=== PATIENT | female | born 1980 | race Caucasian/White ===

== ENCOUNTER → 2016-11-27 | Outpatient (CLI) | payer BC ==
[~2016-11-27] MED LIST: PHEN177S43 MT; [UNRECOGNIZED DRUG - REMARK]
== END | disposition home or self-care (01) ==
LOC: LAB 16:35
PROVIDERS: ATTEND Obstetrics & Gynecology
DX: Z32.00 Encounter for pregnancy test, result unknown (principal)

== ENCOUNTER → 2017-02-05 | Outpatient (CLI) | payer BC | END | disposition home or self-care (01) | LOC: LAB 08:31 | PROVIDERS: ATTEND Obstetrics & Gynecology | DX: O24.410 Gestational diabetes mellitus in pregnancy, diet controlled (principal) | CPT/HCPCS: 82950 ==

== ENCOUNTER 2017-02-19 15:55 | Outpatient (CLI) | payer BC ==
[~2017-02-19] VITALS: Ht 162.6 cm; Wt 81.0 kg
[2017-02-19] MEDS ORDERED: PRENAT PO (16:11)
[2017-02-19 16:12] VITALS: BP 107/63; PULSE 84; RESP 20; Ht 162.6 cm; Wt 81.0 kg
[2017-02-19] MEDS ORDERED: ALBUTEROL/IPRATROPIUM (NEB) 3 ML AMP HHN STA (16:26)
[2017-02-19] MEDS ORDERED: ALBUTEROL 0.083% (NEB) 2.5 MG/3 ML AMP ONE (16:27)
--- NOTE | 2017-02-19 18:01 | TRIAGE ---
OB Triage Datetime Report Generated by CPN: 02/19/2017 18:00 Datetime: 02/19/2017 17:00 Stage of : OB Triage Maternal Assessment Level of Consciousness: Fully Conscious Labor Evaluation Frequency: NONE Monitor Mode: External Resting Tone [place]: Relaxed Heart Rate FHR Baseline Rate: 135 Monitor Mode: External US Variability: Moderate 6-25 bpm Accelerations: 15X15 Decelerations: None Category: Category I Pain Assessment Pain Scale: 0 Pain Goal: 3 Vaginal Exam Membrane Status: Intact Vaginal Bleeding: None Datetime: 02/19/2017 16:59 Stage of : OB Triage Pool: Negative Nitrazine: Negative Datetime: 02/19/2017 16:09 Assessment Type: Triage Maternal Assessment Level of Consciousness: Fully Conscious DTR's/Clonus: DTRs 2+; No Clonus Headache: Denies Blurred Vision: No Respiratory Effort: Unlabored; Regular Rhythm; Equal Expansion Breath Sounds, Left: Clear and Equal Breath Sounds, Right: Clear and Equal Nausea/Vomiting: Denies RUQ Epigastric Pain: Denies Lower Extremities Edema: None Degree: None Upper Extremities Edema: None Degree: None Facial Edema: None Fall Risk Assessment History of Falling: (0) No Secondary Diagnosis: (0) No Ambulatory Aid: (0) Bedrest/Nurse Assist IV Therapy: (0) No Gait: (0) Normal/Bedrest/Immobile Mental Status: (0) Oriented to Own Ability Fall Score: 0 Fall Risk Score Definition: No Risk: No action required Comments: PT COUGHING Datetime: 02/19/2017 16:05 Monitor Mode: External Monitor Mode: External US Datetime: 02/19/2017 15:59 Time of Arrival: 02/19/2017 15:52 EGA: 31.6 Arrived By: Wheelchair Arrived From: Home Chief Complaint: C/O SOB AND COUGH Movement: Present Contractions: Denies/Absent Rupture of Membranes: Denies Vaginal Bleeding: None Vaginal Discharge: Denies Recent Sexual Intercouse: Yes Abdominal Trauma: Not Applicable Patient Complaints: Cough; Shortness of Breath Time Provider Notified: 02/19/2017 16:00 Provider Notified: MAYCO Initial Plan: EFM, RESP TX
[2017-02-19] MEDS ORDERED: ALBU8.5H3 INH (19:48)
[2017-02-19] MEDS ORDERED: LORA10CA PO (19:48)
--- NOTE | 2017-02-20 00:09 | QN ---
Documentation Comment 36-year-old with IUP at 31 weeks and 6 days presented with complaint of shortness of breath and cough for the last 2 days. She reports had chest pressure feeling today also complains of dry cough. Patient reports having sick contact. Family in-house have all of the same symptoms as well as cough. She denies any vaginal bleeding, leaking of fluid or uterine contractions or decreased movement. Physical exam: General appearance: Alert and oriented 4 does not appear to be in any acute distress. Lungs: Rhonchi audible. No rales no wheezing CV: RRR Abdomen: Soft, gravid, no tenderness, no rebound tenderness, no guarding no rigidity. Fundal height consistent with gestational age NST: Category 1. heart rate appropriate for gestational age. No contractions on the monitor seen Extremities: No calf tenderness, no click, 1+ bilateral symmetric edema. No cords palpable Assessment: IUP at 31 weeks and 6 days Cough with and shortness of breath, likely URI symptoms Chest pain, patient will be sent to emergency room for cardiac evaluation Currently no evidence of labor or OB complication at this time Patient advised to use Robitussin 3 times daily as needed cough as well as Tylenol Strict labor precaution and kick count discussed If discharge from the hospital recommended to have a follow-up with her primary OB in a couple of days after discharge Patient verbalized understanding. All questions were answered to the patient's best satisfaction TIO CHAN MD February 20, 2017 00:08 MARISOL = 11.3 cm Single live intrauterine with cardiac activity(FHR = 138 bpm). The placenta is anterior. The presentation is cephalic. The transvaginal cervical length is 3.8 cm. IMPRESSION: 1. Single viable intrauterine gestation. 2. Biophysical profile = 8/8. 3. MARISOL = 11.3 cm. RPTAT: [facility] TIO CHAN MD February 20, 2017 00:08
== END 2017-02-19 18:10 | disposition home or self-care (01) ==
LOC: OBT 15:55 → L-D 15:56 → OBT 18:10
PROVIDERS: ATTEND Obstetrics & Gynecology
DX: O26.893 Other specified pregnancy related conditions, third trimester (principal); R05 Cough; R06.02 Shortness of breath; R07.9 Chest pain, unspecified; O09.523 Supervision of elderly multigravida, third trimester; Z3A.31 31 weeks gestation of pregnancy
CPT/HCPCS: 94664; G0463

== ENCOUNTER 2017-02-19 18:14 | Emergency (ER) | payer BC ==
[~2017-02-19] VITALS: Ht 162.6 cm; Wt 80.5 kg
[~2017-02-19 18:14] MED LIST changes: +PRENAT PO
[2017-02-19 18:19] VITALS: Ht 162.6 cm; Wt 80.5 kg
[2017-02-19] MEDS ORDERED: ALBU8.5H3 INH (19:48)
[2017-02-19] MEDS ORDERED: LORA10CA PO (19:48)
--- NOTE | 2017-02-19 19:53 | ERD ---
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 She says that her entire family has had a viral upper respiratory illness she is the last 1 to get it. She says she has had a cough has been dry with nasal congestion but denies any fevers. She says today she was sitting at the desk and she started wheezing and became a little difficult to breathe. She never had any palpitations or dizziness or syncope. No abdominal pain pelvic pain or contractions. The patient has been seen by OB and clinically cleared from that standpoint. The patient says while she was on the floor she was given 1 breathing treatment she said that completely resolved her respiratory symptoms. She says currently she is only complaining of being congested nasally. ROS All systems reviewed and are negative except as per history of present illness. Medications Home Meds Active Scripts Albuterol Sulfate* (Proair HFA*) 8.5 Gm Hfa.aer.ad, 2 PUFF INH Q4, #1 INHALER Prov:JODY BRAR DO 02/19/17 Loratadine* (Claritin*) 10 Mg Capsule, 10 MG PO DAILY, #10 CAP Prov:JODY BRAR DO 02/19/17 Reported Medications Multivit/Min/Fol Ac/Iron/Pren* ( S*) 1 Tab Tab, 1 TAB PO DAILY, TAB 02/19/17 Discontinued Reported Medications [ Pills] No Conflict Check 08/26/13 Discontinued Scripts Phenol* (Chloraseptic* Spelter) 177 Ml Spelter.pump, 2 SPRAY MT Q2H Y for SORE THROAT, #1 BOTTLE Prov:CHRISTIANOED KELLY DO 06/28/16 Allergies Allergies: Coded Allergies: No Known Drug Allergies (Verified Allergy, Unknown, 06/28/16) PMhx/Soc History of Surgery: Yes (RIGHT BREAST MASS REMOVAL) Anesthesia Reaction: No Hx Neurological Disorder: No Hx Respiratory Disorders: No Hx Cardiac Disorders: No Hx Psychiatric Problems: No Hx Miscellaneous Medical Probl: No Hx Alcohol Use: No Hx Substance Use: No Hx Tobacco Use: No Smoking Status: Never smoker FmHx Family History: No coronary disease Physical Exam Vitals Vital Signs Date Time Temp Pulse Resp B/P Pulse Ox O2 Delivery O2 Flow Rate FiO2 02/19/17 18:19 98.1 96 18 111/61 98 Physical Exam Const: Well-developed, well-nourished Head: Atraumatic, normocephalic Eyes: Normal Conjunctiva, PERRLA, EOMI, normal sclera, no nystagmus ENT: Normal External Ears, Nose and Mouth, moist mucus membranes. Neck: Full range of motion. No meningismus, no lymphadenopathy. Resp: Clear to auscultation bilaterally, no wheezing, rhonchi, rales Cardio: Regular rate and rhythm, no murmurs, S1 S2 present Abd: Soft, non tender x 4, gravid. Normal bowel sounds, no guarding or rebound, no pulsitile abdominal masses or bruits Skin: No petechiae or rashes, no ecchymosis , no maculopapular rash Back: No midline or flank tenderness Ext: No cyanosis, or edema, FROM x 4, normal inspection, neurovascularly intact x 4 Neur: Awake and alert, STR 5/5 x 4, sensation intact x 4, no focal findings, cerebellum intact Psych: Normal Mood and Affect Procedures/MDM EKG: Rate/Rhythm: Normal Sinus Rhythm,NL intervals QRS, ST, QT: NORMAL ME, QRS, QT] Impression: NORMAL EKG Patient sounds like she has viral URI symptoms with wheezing. Wheezing is now resolved. She does not clinically sound like a cardiac or pulmonary embolism. Nebulizer treatment resolved her wheezing and breathing difficulties. She sounds clear now. She feels much better. Will discharge home with albuterol and Claritin. Do not feel she needs antibiotic therapy because she is last seen her family to get this cold-like symptoms. She wants to hold prednisone Departure Diagnosis: Primary Impression: URI (upper respiratory infection) URI type: unspecified viral URI Qualified Code: J06.9 - Viral upper respiratory tract infection Condition: Stable Patient Instructions: Uri, Viral W/ Wheezing (Adult) JODY BRAR DO February 19, 2017 19:53
[2017-02-19 20:55] VITALS: BP 128/66; PULSE 100; RESP 18; TEMP 98.1
== END 2017-02-19 20:55 | disposition home or self-care (01) ==
LOC: FTE 18:14
DX: O99.513 Diseases of the respiratory system complicating pregnancy, third trimester (principal); J06.9 Acute upper respiratory infection, unspecified; R05 Cough; R07.9 Chest pain, unspecified; Z3A.32 32 weeks gestation of pregnancy
CPT/HCPCS: 99283

== ENCOUNTER 2017-04-04 01:15 | Inpatient (IN) | payer BC ==
[~2017-04-04] VITALS: Ht 160 cm; Wt 82.0 kg
[~2017-04-04 01:15] MED LIST changes: +ALBU8.5H3 INH; +LORA10CA PO; -PHEN177S43 MT; -[UNRECOGNIZED DRUG - REMARK]
[2017-04-04 01:28] VITALS: BP 120/69; PULSE 85; RESP 18; Ht 160 cm; Wt 82.0 kg
[2017-04-04] MEDS ORDERED: LACTATED RINGER'S 1,000 ML IV SCH (01:50)
[2017-04-04] MEDS ORDERED: LIDOCAINE 1% (MPF) 30 ML INJ INJ PRN (02:00)
[2017-04-04] MEDS ORDERED: AMPICILLIN 2 GM/NS (PMX) 100 ML IV ONE (02:00)
[2017-04-04] MEDS ORDERED: OXYTOCIN 30 UNITS/LR 500 ML IV SCH ×2 (02:00)
[2017-04-04] MEDS ORDERED: CARBOPROST 250 MCG INJ IM PRN ×2 (02:00→09:00)
[2017-04-04] MEDS ORDERED: IBUPROFEN 600 MG TAB PO PRN (02:00)
[2017-04-04] MEDS ORDERED: BUTORPHANOL 2 MG INJ IV PRN (02:00)
[2017-04-04] MEDS ORDERED: ACETAMINOPHEN/CODEINE #3 TAB PO PRN (02:00)
[2017-04-04] MEDS ORDERED: METHYLERGONOVINE 0.2 MG INJ IM PRN ×2 (02:00→09:00)
[2017-04-04] MEDS ORDERED: OXYTOCIN 30 UNITS/LR 500 ML IV PRN ×2 (02:00→09:00)
[2017-04-04] MEDS ORDERED: MISOPROSTOL 200 MCG TAB PR PRN ×2 (02:00→09:00)
--- NOTE | 2017-04-04 02:26 | TRIAGE ---
OB Triage Datetime Report Generated by CPN: 04/04/2017 02:26 Datetime: 04/04/2017 01:15 Time of Arrival: 04/04/2017 01:11 EGA: 38.1 Arrived By: Wheelchair Arrived From: Home Chief Complaint: PT C/O ABDOMEN PAIN Movement: Present Contractions: Regular Time Contractions Began: 04/03/2017 09:00 Rupture of Membranes: Denies Vaginal Discharge: Denies Recent Sexual Intercouse: Denies Abdominal Trauma: Not Applicable Patient Complaints: Contractions Additional Patient Complaints: TOCO AND EFM APPLIED AND SVE Provider Notified: DR MAO Datetime: 02/19/2017 16:09 Fall Risk Assessment Fall Score: 0 Fall Risk Score Definition: No Risk: No action required Datetime: 02/19/2017 15:59 EGA: 31.6
[2017-04-04 02:51] LABS: ADD SCAN DIFF NO
[2017-04-04 02:58] LABS: BASOPHIL # 0.1 10^3/ul (0.0-0.1); BASOPHILS % 0.4 % (0.0-2.0); EOSINOPHILS % 0.3 % (0.0-7.0); HEMATOCRIT 31.6 % (37.0-47.0); HEMOGLOBIN 10.7 g/dl (12.0-16.0); LYMPHOCYTES # 1.9 10^3/ul (0.8-2.9); LYMPHOCYTES % 15.4 % (15.0-51.0); MEAN CORPUSCULAR HEMOGLOBIN 30.1 pg (29.0-33.0); MEAN CORPUSCULAR HGB CONC 33.9 g/dl (32.0-37.0); MEAN CORPUSCULAR VOLUME 88.8 fl (82.0-101.0); MEAN PLATELET VOLUME 10.9 fl (7.4-10.4); MONOCYTE # 0.7 10^3/ul (0.3-0.9); MONOCYTES % 5.2 % (0.0-11.0); NEUTROPHIL # 9.8 10^3/ul (1.6-7.5); NEUTROPHILS % 78.1 % (39.0-77.0); PLATELET COUNT 222 10^3/UL (140-415); RED BLOOD COUNT 3.56 10^6/ul (4.20-5.40); RED CELL DISTRIBUTION WIDTH 14.1 % (11.5-14.5); WHITE BLOOD COUNT 12.6 10^3/ul (4.8-10.8)
[2017-04-04] MEDS ORDERED: FENTAnyl 2MCG/ML-ROPIV 0.2% 100 ML ONE (03:14)
[2017-04-04 03:15] LABS: INR 0.91; PARTIAL THROMBOPLASTIN TIME 27.5 Sec (25.0-35.0); PROTIME 12.3 Sec (12.2-14.2)
[2017-04-04] MEDS ORDERED: EPHEDrine SULFATE 50 MG/5 ML SYG IV PRN (03:30)
[2017-04-04] MEDS ORDERED: ONDANSETRON 4 MG INJ IV PRN (03:30)
[2017-04-04] MEDS ORDERED: FENTAnyl 2MCG/ML-ROPIV 0.2% 100 ML BAG EPI SCH (03:30)
[2017-04-04] MEDS ORDERED: NALOXONE (0.4 MG/ML) INJ IV PRN (03:30)
[2017-04-04] MEDS ORDERED: LACTATED RINGER'S 1,000 ML IV PRN (04:00)
[2017-04-04] MEDS ORDERED: AMPICILLIN 1 GM/NS (PMX) 50 ML IV SCH (06:00)
[2017-04-04] MEDS: LACTATED RINGER'S 1,000 ML IV* SCH ×2 (08:43→16:43)
--- NOTE | 2017-04-04 08:52 | LDN ---
Date/Time of Note Date/Time of Note DATE: 04/04/17 TIME: 08:49 Delivery Summary of a viable baby girl weighing 2835 grams, or 6# 4oz, 19" long and with Apgars of 9/9. Weeks of Gestation 38w Placenta Delivered: Spontaneously Meconium: none Episiotomy: No Perineal laceration: 1 Laceration repair: 1st degree vaginal laceration repaired with 2-0 chromic for hemostasis. Anesthesia type: Epidural Estimated blood loss: 150 Sponge & Needle done & correct: Yes All needle counts correct: Yes Any foreign bodies felt in the: No (vagina) Problems: Delivery Information Sex Infant Sex: female Apgars 1 Minute: 9 5 Minute: 9 Suctioning Nose & mouth suctioned at mikey: Yes Delee suction performed: No Umbilical Cord Umbilical cord with: 3 Vessels Cord presentations: nuchal cord Nuchal cord present X: 1 Cord Blood was obtained: Yes Mother & Baby Disposition Disposition Mom & Baby to Maternity; Good: Yes Baby to NICU: No ENDY MAO MD Apr 04, 2017 08:52
[2017-04-04] MEDS: OXYTOCIN 30 UNITS/LR 500 ML IV SCH ×2 (08:55→09:00)
--- NOTE | 2017-04-04 08:57 | HP ---
Date/Time of Note Date/Time of Note DATE: 04/04/17 TIME: 08:52 OB - History Hx of Present Free Text/Dictation 36 y.o. A1 with an IUP at 38 weeks came in this am at 0100 in labor and cervical exam was 90%/5cm on admit. Chief Complaint: Labor Estimated Due Date: Apr 18, 2017 : 3 Para: 1 Spontaneous : 1 Care: Good Care Ultrasounds: Normal mid trimester US Obstetrical Complications: None Medical Complications: Respiratory (asthma) Past Family/Social History * Past Medical, Surgical, Family and Obstetric Histories reviewed from chart. Blood Type: A+ Rubella: immune RPR/VDRL: Negative GBS Status: Positive HBsAG: Negative OB Admission Exam Vital Signs Vital Signs Vital Signs Date Time Temp Pulse Resp B/P Pulse Ox O2 Delivery O2 Flow Rate FiO2 04/04/17 01:28 97.8 85 18 120/69 Room Air Physical Exam HEENT: WNL Heart: Rhythm Normal Lungs: Clear Abdomen: WNL Extremities: Normal Reflexes: Normal Cervical Dilatation: 5cm Effacement: Other (90%) Station: -2 Membranes: Ruptured Amniotic Fluid: Clear Heart Rate: 140's Accelerations: Accelerations Present Decelerations: Variable Decelerations Varibility: Moderate Contractions on Admission: < 5 Minutes Apart Intensity: Moderate Last 72 hours Lab Results CBC & BMP 04/04/17 02:05 OB Assessment/Plan Reason for admission: active labor, group B positive strep Plan: Expectant Management Other plan: Antibiotic prophylaxis ENDY MAO MD Apr 04, 2017 08:57
[2017-04-04] MEDS ORDERED: OXYCODONE/ASPIRIN (4.88/325) TAB PO PRN (09:00)
[2017-04-04] MEDS ORDERED: LANOLIN 7 GM TUBE TOP PRN (09:00)
[2017-04-04 10:10] VITALS: BP 131/63; PULSE 80; RESP 18
[2017-04-04] MEDS: LORATADINE 10 MG TAB PO SCH (11:49)
[2017-04-04] MEDS: IBUPROFEN 600 MG TAB PO SCH ×2 (11:49→18:03)
[2017-04-04 12:30] VITALS: BP 130/60; PULSE 84; RESP 16
[2017-04-04] MEDS: ALBUTEROL HFA 8 GM INHALER INH SCH ×3 (13:00→21:00)
[2017-04-04 16:00] VITALS: BP 110/53; PULSE 81; RESP 18
[2017-04-04 20:20] VITALS: BP 103/60; PULSE 65; RESP 18
[2017-04-05] MEDS: IBUPROFEN 600 MG TAB PO SCH ×4 (00:27→18:01)
[2017-04-05] MEDS: LACTATED RINGER'S 1,000 ML IV* SCH ×3 (00:43→16:19)
[2017-04-05] MEDS: ALBUTEROL HFA 8 GM INHALER INH SCH ×6 (01:00→21:00)
[2017-04-05 04:05] VITALS: BP 99/56; PULSE 76; RESP 18
[2017-04-05 07:09] LABS: ADD SCAN DIFF NO
[2017-04-05 07:14] LABS: BASOPHILS % 0.2 % (0.0-2.0); EOSINOPHILS # 0.1 10^3/ul (0.0-0.5); EOSINOPHILS % 0.6 % (0.0-7.0); HEMATOCRIT 28.5 % (37.0-47.0); HEMOGLOBIN 9.4 g/dl (12.0-16.0); LYMPHOCYTES # 2.2 10^3/ul (0.8-2.9); LYMPHOCYTES % 20.3 % (15.0-51.0); MEAN CORPUSCULAR HEMOGLOBIN 29.4 pg (29.0-33.0); MEAN CORPUSCULAR VOLUME 89.1 fl (82.0-101.0); MEAN PLATELET VOLUME 10.4 fl (7.4-10.4); MONOCYTE # 0.6 10^3/ul (0.3-0.9); MONOCYTES % 5.8 % (0.0-11.0); NEUTROPHIL # 7.8 10^3/ul (1.6-7.5); NEUTROPHILS % 72.3 % (39.0-77.0); PLATELET COUNT 196 10^3/UL (140-415); RED CELL DISTRIBUTION WIDTH 14.4 % (11.5-14.5); WHITE BLOOD COUNT 10.8 10^3/ul (4.8-10.8)
[2017-04-05 07:45] VITALS: BP 106/58; PULSE 75; RESP 16
[2017-04-05] MEDS: LORATADINE 10 MG TAB PO SCH (09:00)
--- NOTE | 2017-04-05 11:37 | PD.PPDC ---
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
--- NOTE | 2017-04-05 11:40 | DS ---
Date/Time of Note Date/Time of Note DATE: 04/05/17 TIME: 11:39 Obstetrical Discharge Record Final Diagnosis Final Diagnosis: Term delivered Vaginal Delivery Obstetrical Delivery: Spontaneous Complications Augmentation: No Induction: No Condition on Discharge Physical Assessment Last Vitals: T=98.2 BP 106/55 Voiding: Yes Bowel Movement: Yes Breast: Soft, non-tender Fundus: Firm Calf Tenderness: No Patient Condition: Good ENDY MAO MD Apr 05, 2017 11:40
[2017-04-05 15:21] VITALS: BP 106/62; PULSE 86; RESP 18
[2017-04-05 19:45] VITALS: BP 108/68; PULSE 78; RESP 18
[2017-04-06] MEDS: IBUPROFEN 600 MG TAB PO SCH ×3 (00:33→12:24)
[2017-04-06] MEDS: ALBUTEROL HFA 8 GM INHALER INH SCH ×4 (01:00→13:00)
[2017-04-06 04:30] VITALS: BP 106/55; PULSE 72
[2017-04-06 08:00] VITALS: BP 107/63; PULSE 67; RESP 18
[2017-04-06] MEDS: LORATADINE 10 MG TAB PO SCH (08:31)
[2017-04-06] MEDS ORDERED: DIPHTH/TET/ACEL PERTUSS (ADULT) 0.5 ML VIAL IM* ONE (09:00)
== END 2017-04-06 16:15 | disposition home or self-care (01) | DRG 775 ==
LOC: EEVIPCON → L-D 01:15 → OBT 01:15 → L-D 01:42 → PP1 10:07
PROVIDERS: ADMIT Obstetrics & Gynecology; ATTEND Obstetrics & Gynecology
PROC: 10E0XZZ Delivery of Products of Conception, External Approach (ICD-10-PCS; principal; 2017-04-04)
PROC: 0HQ9XZZ Repair Perineum Skin, External Approach (ICD-10-PCS; 2017-04-04)
PROC: 3E00X4Z Introduction of Serum, Toxoid and Vaccine into Skin and Mucous Membranes, External Approach (ICD-10-PCS; 2017-04-06)
DX: O71.4 Obstetric high vaginal laceration alone (principal); Z23 Encounter for immunization; Z3A.38 38 weeks gestation of pregnancy; Z37.0 Single live birth
CPT/HCPCS: 59025; 62319; 85025; 85610; 85730; 86592; 86900; 86901; 87340; 90715; 99464; G0463; J0290; J0595; J2590; J3010; J7120

== ENCOUNTER 2017-11-03 20:14 | Emergency (ER) | END 2017-11-03 23:06 | disposition home or self-care (01) ==

== ENCOUNTER 2018-07-10 15:26 | Emergency (ER) | END 2018-07-10 18:20 | disposition home or self-care (01) ==

== ENCOUNTER 2018-07-15 09:07 | Emergency (ER) | END 2018-07-15 12:22 | disposition home or self-care (01) ==

== ENCOUNTER 2019-02-15 06:16 | Emergency (ER) | payer BC ==
[~2019-02-15] VITALS: Ht 162.6 cm; Wt 82.5 kg
[~2019-02-15 06:16] MED LIST changes: +ACET500C5 PO; -ALBU8.5H3 INH; +ALBU8.5H8 INH; +CEPH-443 PO; +CYCL10TA7 PO; +DICY10CA40 PO; +HYDR-4011 PO; +MECL12.574 PO; +ONDA4TAB8 PO
[2019-02-15 06:21] VITALS: Ht 162.6 cm; Wt 82.5 kg
[2019-02-15] MEDS ORDERED: SOD CHLORIDE 0.9% 1,000 ML IV STA (06:36)
[2019-02-15] MEDS ORDERED: FAMOTIDINE 20 MG INJ IV STA (06:36)
[2019-02-15] MEDS ORDERED: ONDANSETRON 4 MG INJ IV STA (06:36)
[2019-02-15] MEDS ORDERED: KETOROLAC 30 MG INJ IV STA (06:37)
[2019-02-15] MEDS ORDERED: DICYCLOMINE 20 MG INJ IM ONE (08:30)
[2019-02-15] MEDS ORDERED: ONDA4TAB14 PO (08:37)
[2019-02-15] MEDS ORDERED: FAMO-96 PO (08:37)
[2019-02-15] MEDS ORDERED: ACET325T33 PO (08:41)
[2019-02-15] MEDS ORDERED: DICY10CA40 PO (08:43)
--- NOTE | 2019-02-15 08:49 | ERD ---
ER Documentation Chief Complaint Chief Complaint DIARRHEA WITH N/V X1DAY HPI History of Present Illness: 38-year-old female with no past medical history coming in today with complaint of diarrhea, nausea, vomiting that is been present since yesterday. Patient reports going to a alliance party 2 days ago in which she was possibly used to another patient that had diarrhea; her [id number]. Yesterday while driving home patient began feeling ill at approximately 4 PM in which she started experiencing body aches, fatigue, and had to tack puller machine to vomit. Since this episode of sickness began, patient has been having abdominal bloating, vomiting x6, diarrhea x5. Patient denies any other associated sympto ms. Patient denies fever at home. Patient does complains of feeling fatigued and with increased thirst but with no desire to drink. At home pharmacological/nonpharmacological treatment for symptoms: Denies Denies social concerns; Denies recent foreign travel ROS All systems reviewed and are negative except as per history of present illness. Medications Home Meds Active Scripts Dicyclomine HCl (Dicyclomine HCl) 10 Mg Capsule, 10 MG PO TID PRN for ABDOMINAL CRAMPING, #20 CAP Prov:COLIN TEJEDA NP 02/15/19 Acetaminophen* (Tylenol*) 325 Mg Tablet, 2 TAB PO Q6 PRN for PAIN AND OR ELEVATED TEMP, #20 TAB Prov:COLIN TEJEDA NP 02/15/19 Famotidine* (Pepcid*) 20 Mg Tablet, 40 MG PO BID for ABDOMINAL DISCOMFORT/ACID for 5 Days, TAB Prov:COLIN TEJEDA V REHABILITATION SPECIALIST 02/15/19 Ondansetron (Ondansetron Odt) 4 Mg Tab.rapdis, 4 MG PO Q6H PRN for NAUSEA AND/OR VOMITING, #10 TAB Prov:COLIN TEJEDA NP 02/15/19 Dicyclomine HCl (Dicyclomine HCl) 10 Mg Capsule, 10 MG PO TID PRN for ABDOMINAL CRAMPING, #20 CAP Prov:TISH PASCUAL PA-C 07/15/18 Meclizine Hcl* (Antivert*) 12.5 Mg Tab, 12.5 MG PO Q6H PRN for DIZZINESS, #20 TAB Prov:TISH PASCUAL PA-C 9/26/18 Ondansetron Hcl* (Zofran*) 4 Mg Tablet, 4 MG PO Q6H for NAUSEA AND/OR VOMITING, #30 TAB Prov:TISH PASCUAL PA-C 07/15/18 Cephalexin* (Keflex*) 500 Mg Capsule, 500 MG PO QID for 5 Days, CAP Prov:DEEPIKA BECKHAM PA-C 07/10/18 Cyclobenzaprine Hcl* (Cyclobenzaprine Hcl*) 10 Mg Tablet, 10 MG PO TID, #15 TAB Prov:DEYVI GONZALEZ REHABILITATION SPECIALIST 11/03/17 Hydrocodone/Acetaminophen ([place] 5-325 Tablet) 1 Each Tablet, 1 TAB PO Q6H PRN for SEVERE PAIN LEVEL 7-10, #20 TAB Prov:DEYVI GONZALEZ REHABILITATION SPECIALIST 11/03/17 Acetaminophen* (Tylophen*) 500 Mg Capsule, 1 CAP PO Q6H PRN for PAIN AND OR ELEVATED TEMP, #20 CAP Prov:DEYVI GONZALEZ REHABILITATION SPECIALIST 11/03/17 Albuterol Sulfate* (Proair HFA*) 8.5 Gm Hfa.aer.ad, 2 PUFF INH Q4, #1 INHALER Prov:NINI BRARSTRAYOS Briana DO 02/19/17 Loratadine* (Claritin*) 10 Mg Capsule, 10 MG PO DAILY, #10 CAP Prov:LEKKOS,APOSTOLOS A. DO 02/19/17 Reported Medications Multivit/Min/Fol Ac/Iron/Pren* ( S*) 1 Tab Tab, 1 TAB PO DAILY, TAB 02/19/17 Allergies Allergies: Coded Allergies: No Known Drug Allergies (Verified Allergy, Unknown, 11/03/17) PMhx/Soc History of Surgery: No Anesthesia Reaction: No Hx Neurological Disorder: No Hx Respiratory Disorders: No Hx Cardiac Disorders: No Hx Psychiatric Problems: No Hx Miscellaneous Medical Probl: Yes (right breast cyst biopsy) Hx Alcohol Use: No Hx Substance Use: No Hx Tobacco Use: No Smoking Status: Never smoker FmHx Family History: coronary disease; No diabetes Physical Exam Vitals Vital Signs Date Temp Pulse Resp B/P (MAP) Pulse Ox O2 O2 Flow FiO2 Time Delivery Rate 02/15/19 97.8 103 19 120/69 97 06:21 (86) Physical Exam Const: No acute distress Head: Atraumatic Eyes: Normal Conjunctiva ENT: Normal External Ears, Nose and Mouth. Neck: Full range of motion. No meningismus. Resp: Clear to auscultation bilaterally Cardio: Regular rate and rhythm, no murmurs Abd: Soft, generalized tender all quadrants more particularly epigastric, non distended. Hyperactive bowel sounds Skin: No petechiae or rashes Back: No midline or flank tenderness Ext: No cyanosis, or edema Neur: Awake and alert Psych: Normal Mood and Affect Results 24 hrs Laboratory Tests Test 02/15/19 07:00 02/15/19 07:05 Urine Color YELLOW Urine Clarity SLIGHTLY CLOUDY Urine pH 5.0 Urine Specific [place] 1.024 Urine Ketones TRACE mg/dL Urine Nitrite NEGATIVE mg/dL Urine Bilirubin NEGATIVE mg/dL Urine Urobilinogen NEGATIVE mg/dL Urine Leukocyte Esterase NEGATIVE Lindsay/ul Urine Microscopic RBC 1 /HPF Urine Microscopic WBC 4 /HPF Urine Squamous Epithelial Cells MODERATE /HPF Urine Bacteria FEW /HPF Urine Mucus FEW /HPF Urine Hemoglobin NEGATIVE mg/dL Urine Glucose NEGATIVE mg/dL Urine Total Protein NEGATIVE mg/dl POC Beta HCG, Qualitative NEGATIVE Current Medications Medications Dose Sig/Filemon Start Time Status Last (Trade) Ordered Route PRN Stop Time Admin Dose Reason Admin Sodium 1,000 ml @ Q1H STAT 02/15/19 DC 02/15/19 Chloride 1,000 mls/hr IV 06:36 07:01 02/15/19 07:35 Ondansetron 4 mg ONCE STAT 02/15/19 DC 02/15/19 HCl (Zofran IV 06:36 07:07 Inj) 02/15/19 06:37 Famotidine 20 mg ONCE STAT 02/15/19 DC 02/15/19 (Pepcid Iv) IV 06:36 07:07 02/15/19 06:37 Ketorolac 30 mg ONCE STAT 02/15/19 DC 02/15/19 Tromethamine IV 06:37 07:09 (Toradol) 02/15/19 06:39 Dicyclomine 20 mg ONCE ONCE 02/15/19 DC 02/15/19 HCl IM 08:30 08:31 (Bentyl) 02/15/19 08:31 Procedures/MDM ED course includes a thorough examination and history. Medications: IV NS, ketorolac, Zofran, Pepcid Imaging: -- Labs: Urinalysis, urine Low suspicion for life-threatening medical emergency. Otherwise healthy patient presenting with constellation of symptoms likely representing vomiting diarrhea secondary to gastroenteritis as characterized by history, physical exam findings, lab findings. Urinalysis negative for infection. Urine negative. No respiratory distress, otherwise relatively well appearing and nontoxic. Patient reassessment indicates patient with decreased pain, patient only describing soreness to epigastric area. Patient denies nausea, no vomiting during ER. Patient with decrease in fatigue. Will p.o. challenge patient if no failed will discharge. Bentyl added for intermittent abdominal cramping. Patient educated on diagnoses, prescriptions, follow-up care, return preca utions. Strict return precautions given for worsening condition; questions answered discharge. Patient passed p.o. challenge. Disposition given. Disposition for discharge with followup in 2 days with PCP/clinic. Departure Diagnosis: Primary Impression: Gastroenteritis Additional Impression: Vomiting and diarrhea Condition: Stable Patient Instructions: Self-Care for Vomiting and Diarrhea, Gastroenteritis, Non-Infectious (Child) (Adult) Referrals: [facility] YOU HAVE RECEIVED A MEDICAL SCREENING EXAM AND THE RESULTS INDICATE THAT YOU DO NOT HAVE A CONDITION THAT REQUIRES URGENT TREATMENT IN THE EMERGENCY DEPARTMENT. FURTHER EVALUATION AND TREATMENT OF YOUR CONDITION CAN WAIT UNTIL YOU ARE SEEN IN YOUR DOCTORS OFFICE WITHIN THE NEXT 1-2 DAYS. IT IS YOUR RESPONSIBILITY TO MAKE AN APPOINTMENT FOR FOLOW-UP CARE. IF YOU HAVE A PRIMARY DOCTOR --you should call your primary doctor and schedule an appointment IF YOU DO NOT HAVE A PRIMARY DOCTOR YOU CAN CALL OUR PHYSICIAN REFERRAL HOTLINE AT IF YOU CAN NOT AFFORD TO SEE A PHYSICIAN YOU CAN CHOSE FROM THE FOLLOWING [facility] [address] [facility] [address] [facility] [facility] [address] [facility] [facility] [address] [facility] [address] [facility]. [facility]. [address] [facility]. [facility] YOU HAVE RECEIVED A MEDICAL SCREENING EXAM AND THE RESULTS INDICATE THAT YOU DO NOT HAVE A CONDITION THAT REQUIRES URGENT TREATMENT IN THE EMERGENCY DEPARTMENT. FURTHER EVALUATION AND TREATMENT OF YOUR CONDITION CAN WAIT UNTIL YOU ARE SEEN IN YOUR DOCTORS OFFICE WITHIN THE NEXT 1-2 DAYS. IT IS YOUR RESPONSIBILITY TO MAKE AN APPOINTMENT FOR FOLOW-UP CARE. IF YOU HAVE A PRIMARY DOCTOR --you should call your primary doctor and schedule and appointment IF YOU DO NOT HAVE A PRIMARY DOCTOR YOU CAN CALL OUR PHYSICIAN REFERRAL HOTLINE AT . IF YOU CAN NOT AFFORD TO SEE A PHYSICIAN YOU CAN CHOSE FROM THE FOLLOWING [facility] INSTITUTIONS: [facility] [address] [place] [address] [facility] [address] [place] [address] [facility] [address] [place] [address] Additional Instructions: Thank you very much for allowing us to participate in your care. Your health and safety is our top priority at [facility]. It is important to read all discharge instructions and education provided in your discharge packet. *Start a [id number] probiotic. A brand called Align is used frequently for patients who have DIARRHEA OR with GI symptom* Call your primary care doctor TOMORROW for an appointment during the next 2-4 days and bring all the information and medications prescribed. Have prescriptions filled and follow precisely the directions on the label. -Acetaminophen as a medication for pain and/or fever. Take this medication as needed for mild to moderate pain. This medication will not cause drowsiness. -Zofran is a medication for nausea/vomitting; take this medication as needed for nausea/vomiting/decreased appetite. -Famotidine is a medication that will help with acid reflux; take this medication as prescribed with lunch and dinner. This will hopefully help with unsettled/upper abdominal pain that you are experiencing after vomiting. If the symptoms get worse and your provider is unavailable, return to the Emergency Department immediately. COLIN TEJEDA NP Feb 15, 2019 08:49
[2019-02-15 09:20] VITALS: BP 102/66; PULSE 87; RESP 18
== END 2019-02-15 09:21 | disposition home or self-care (01) ==
LOC: FTE 06:16
DX: K52.9 Noninfective gastroenteritis and colitis, unspecified (principal)
CPT/HCPCS: 81001; 81025; J0500; J1885; J2405; J7030; 81003; 96372; 96374; 96375

== ENCOUNTER 2019-03-12 12:28 | Emergency (ER) | payer BC ==
[~2019-03-12] VITALS: Wt 83.9 kg
[~2019-03-12 12:28] MED LIST changes: +ACET325T33 PO; +FAMO-96 PO; +ONDA4TAB14 PO
[2019-03-12 12:43] VITALS: BP 132/82; PULSE 88; RESP 20
[2019-03-12] MEDS ORDERED: BENZ-6 PO (13:18)
[2019-03-12] MEDS ORDERED: IBUP-1542 PO (13:18)
[2019-03-12] MEDS ORDERED: D-ME473S2 PO (13:18)
--- NOTE | 2019-03-12 15:57 | ERD ---
ER Documentation Chief Complaint Chief Complaint THROAT PAIN X THIS MORNING HPI Patient is a 38-year-old female presents the ER for concerns of throat pain for 2 days. Patient reports tactile fevers and chills. Patient denies any drooling, trismus or hypertension of her neck. Patient states she has mild dry cough. Patient states she has lost her voice secondary to talking. 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 Patient's daughter is a sick contact. ROS All systems reviewed and are negative except as per history of present illness. Medications Home Meds Active Scripts Dextromethorphan Hb-Promethazine Hcl* (Promethazine DM* Syrup) 473 Ml Syrup, 5 ML PO Q6 PRN for COUGH, #4 OZ Prov:ANALILIA MENENDEZ-C 03/12/19 Benzonatate* (Tessalon Perle*) 100 Mg Capsule, 100 MG PO Q8H PRN for COUGH, #20 CAP Prov:ANALILIA MENENDEZ-C 03/12/19 Ibuprofen* (Motrin*) 600 Mg Tab, 600 MG PO Q6, #30 TAB Prov:ANALILIA MENENDEZ-C 03/12/19 Dicyclomine HCl (Dicyclomine HCl) 10 Mg Capsule, 10 MG PO TID PRN for ABDOMINAL CRAMPING, #20 CAP Prov:COLIN TEJEDA NP 02/15/19 Acetaminophen* (Tylenol*) 325 Mg Tablet, 2 TAB PO Q6 PRN for PAIN AND OR ELEVATED TEMP, #20 TAB Prov:COLIN TEJEDA NP 02/15/19 Famotidine* (Pepcid*) 20 Mg Tablet, 40 MG PO BID for ABDOMINAL DISCOMFORT/ACID for 5 Days, TAB Prov:COLIN TEJEDA NP 02/15/19 Ondansetron (Ondansetron Odt) 4 Mg Tab.rapdis, 4 MG PO Q6H PRN for NAUSEA AND/OR VOMITING, #10 TAB Prov:COLIN TEJEDA NP 02/15/19 Dicyclomine HCl (Dicyclomine HCl) 10 Mg Capsule, 10 MG PO TID PRN for ABDOMINAL CRAMPING, #20 CAP Prov:TISH PASCUAL-C 07/15/18 Meclizine Hcl* (Antivert*) 12.5 Mg Tab, 12.5 MG PO Q6H PRN for DIZZINESS, #20 TAB Prov:TISH PASCUAL PA-C 07/15/18 Ondansetron Hcl* (Zofran*) 4 Mg Tablet, 4 MG PO Q6H for NAUSEA AND/OR VOMITING, #30 TAB Prov:TISH PASCUAL PA-C 07/15/18 Cephalexin* (Keflex*) 500 Mg Capsule, 500 MG PO QID for 5 Days, CAP Prov:DEEPIKA BECKHAM PA-C 07/10/18 Cyclobenzaprine Hcl* (Cyclobenzaprine Hcl*) 10 Mg Tablet, 10 MG PO TID, #15 TAB Prov:DEYVI GONZALEZ DRUM MAKER 11/03/17 Hydrocodone/Acetaminophen ([place] 5-325 Tablet) 1 Each Tablet, 1 TAB PO Q6H PRN for SEVERE PAIN LEVEL 7-10, #20 TAB Prov:DEYVI GONZALEZ DRUM MAKER 11/03/17 Acetaminophen* (Tylophen*) 500 Mg Capsule, 1 CAP PO Q6H PRN for PAIN AND OR ELEVATED TEMP, #20 CAP Prov:DEYVI GONZALEZ DRUM MAKER 11/03/17 Albuterol Sulfate* (Proair HFA*) 8.5 Gm Hfa.aer.ad, 2 PUFF INH Q4, #1 INHALER Prov:JODY BRAR DO 02/19/17 Loratadine* (Claritin*) 10 Mg Capsule, 10 MG PO DAILY, #10 CAP Prov:JODY BRAR DO 02/19/17 Reported Medications Multivit/Min/Fol Ac/Iron/Pren* ( S*) 1 Tab Tab, 1 TAB PO DAILY, TAB 02/19/17 Allergies Allergies: Coded Allergies: No Known Drug Allergies (Verified Allergy, Unknown, 11/03/17) PMhx/Soc History of Surgery: No Anesthesia Reaction: No Hx Neurological Disorder: No Hx Respiratory Disorders: No Hx Cardiac Disorders: No Hx Psychiatric Problems: No Hx Miscellaneous Medical Probl: Yes (right breast cyst biopsy) Hx Alcohol Use: No Hx Substance Use: No Hx Tobacco Use: No FmHx Family History: No diabetes Physical Exam Vitals Vital Signs Date Temp Pulse Resp B/P (MAP) Pulse Ox O2 O2 Flow FiO2 Time Delivery Rate 03/12/19 98.2 88 20 132/82 99 12:43 (99) Physical Exam GENERAL: Well-developed, well-nourished female. Appears in no acute distress. HEAD: Normocephalic, atraumatic. No deformities or ecchymosis. EYE: Pupils equal, round, and reactive to light. EOMs intact. No conjunctival erythema. No eye discharge. ENT: External ear without any masses or tenderness. Auditory canals clear bilaterally. TM visualized bilaterally, non-erythematous, non-bulging. Nasal mucosa pink with no discharge. Oropharynx is pink without any tonsillar erythema or exudates. No uvula deviation. No kissing tonsils. Voice hoarseness noted. No drooling. No trismus. No hyperextension of the neck. NECK: Supple. No meningismus. Normal ROM of the neck. LUNG: Clear to auscultation bilaterally. No rhonchi, wheezing, rales or coarse breath sounds. HEART: Regular rate and rhythm. No murmurs, rubs or gallops. NEUROLOGIC: Alert and oriented to person, place and time. Moving all four extremities. 5/5 strength in all extremities. Normal speech. Steady gait SKIN: Normal color. Warm and dry. No rashes or lesions. Procedures/MDM MEDICAL DECISION MAKING: This is a 38-year-old female presents the ER for concerns of throat pain and voice hoarseness x2 days. Patient reports tactile fevers at home.. Vital signs were reviewed. Patient was afebrile. Patient was not hypoxic. At this time, patient presentation was consistent with viral laryngitis and cough. Low suspicion for pneumonia, meningitis, sinusitis, otitis externa, acute otitis media, strep pharyngitis, epiglottitis or peritonsillar abscess. Patient was nontoxic, [id number] prior to discharge. DISCHARGE: At this time, patient is stable for discharge and outpatient management. Supportive therapies such as OTC throat lozenges, salt water gurgles, popsicles and jello discussed. I have instructed the patient to follow-up with his/her primary care physician in 1-2 days. I have instructed the patient to promptly return to the ER for any new or worsening symptoms including increased pain, swelling, fever, nausea, vomiting, weakness or difficulty breathing. The patient and/or family expressed understanding of and agreement with this plan. All questions were answered. Home care instructions were provided. Disclaimer: Inadvertent spelling and grammatical errors are likely due to EHR/dictation software use and do not reflect on the overall quality of patient care. Also, please note that the electronic time recorded on this note does not necessarily reflect the actual time of the patient encounter. Departure Diagnosis: Primary Impression: Laryngitis, acute Additional Impression: Cough Condition: Fair Patient Instructions: Laryngitis Additional Instructions: Call your primary care doctor TOMORROW for an appointment during the next 1-2 days.See the doctor sooner or return here if your condition worsens before your appointment time. ANALILIA MENENDEZ PA-C March 12, 2019 15:57
== END 2019-03-12 13:40 | disposition home or self-care (01) ==
LOC: E/R 12:28
DX: J04.0 Acute laryngitis (principal)
CPT/HCPCS: 99283

== ENCOUNTER 2019-06-05 00:26 | Emergency (ER) | payer BC ==
[~2019-06-05] VITALS: Ht 162.6 cm; Wt 83.4 kg
[~2019-06-05 00:26] MED LIST changes: +BENZ-6 PO; +D-ME473S2 PO; +IBUP-1542 PO
[2019-06-05 00:46] VITALS: Ht 162.6 cm; Wt 83.4 kg
[2019-06-05 03:00] VITALS: BP 115/74; PULSE 82; RESP 18
== END 2019-06-05 03:34 | disposition home or self-care (01) ==
LOC: FTE 00:26
DX: R39.9 Unspecified symptoms and signs involving the genitourinary system (principal)
CPT/HCPCS: 81001; 81003; 99283